=== PATIENT | male | born 1970 | race Hispanic/Latino ===

== ENCOUNTER 2017-04-12 21:36 | Emergency (ER) | payer SELFPAY ==
[~2017-04-12] VITALS: Ht 180.3 cm; Wt 95.3 kg
[2017-04-12] MEDS ORDERED: SODIUM CHLORIDE FLUSH 10 ML SYR INJ PRN (22:15)
[2017-04-12] MEDS ORDERED: KETOROLAC TROMETHAMINE 30 MG/ML VIAL IV STA (22:30)
[2017-04-13 01:06] VITALS: BP 145/80
== END 2017-04-13 00:10 | disposition home or self-care (01) ==
LOC: FSED 21:36
DX: S10.83XA Contusion of other specified part of neck, initial encounter (principal); S20.219A Contusion of unspecified front wall of thorax, initial encounter; M54.5 Low back pain; V43.52XA Car driver injured in collision with other type car in traffic accident, initial encounter; Y92.488 Other paved roadways as the place of occurrence of the external cause
CPT/HCPCS: 71260; 72100; 72125; 80048; 96374; 99283; J1885